=== PATIENT | male | born 1980 | race Caucasian/White ===

== ENCOUNTER 2021-10-30 15:13 | Emergency (ER) | payer OTHER, SELFPAY ==
--- NOTE | ~2021-10-30 | XR_ITS ---
XR shoulder LT min 2V DATE: 10/30/2021 16:06 INDICATION: Left shoulder pain, left neck pain, chronic. No injury. TECHNIQUE: 4 views of left shoulder COMPARISON: None FINDINGS: No fracture or dislocation, periosteal reaction or bone destruction or abnormal soft tissue calcification. Normal alignment at the acromioclavicular and glenohumeral joints. IMPRESSION: Negative Reviewed, dictated and finalized at location A. IMPRESSION: Negative
[2021-10-30 15:45] VITALS: BP 138/81; PULSE 89; RESP 16; TEMP 36.7; O2SAT 99
--- NOTE | 2021-10-30 15:59 | ED.UPPEXIN ---
HPI - Extremity Injury (Upper) General Chief Complaint: Extremity Injury, Upper Stated Complaint: L shoulder pain Time Seen by Provider: 10/30/21 15:42 History of Present Illness HPI narrative: 41-year-old male presents to the emergency room complaints of a atraumatic left shoulder pain. Patient states that he has been having pain for over a month, has recently gotten worse. 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 Patient states that he has gone to a chiropractor on multiple occasions in urgent care for this issue in the. Chiropractor states that he has muscle strain. Patient has been taking Flexeril with little relief. Patient reports decreased muscle strength and occasional paresthesias in his left arm. Review of Systems Review of Systems: CONSTITUTIONAL: Denies fever, chills, or sweats. EYES: Denies visual changes, redness, or discharge. ENT: Denies rhinorrhea, congestion, sore throat, or otalgia. CARDIOVASCULAR: Denies chest pain, palpitations, or edema. RESPIRATORY: Denies cough or dyspnea. GASTROINTESTINAL: Denies abdominal pain, nausea, vomiting, or diarrhea. GENITOURINARY: Denies dysuria or hematuria. SKIN: Denies rash or itching. MUSCULOSKELETAL: Reports left shoulder pain NEUROLOGIC: Denies headache, numbness, dizziness, or weakness. PSYCHIATRIC: Denies anxiety or depression. Exam Narrative: GENERAL: Well-appearing, well-nourished, and in no acute distress. HEAD: Normocephalic, atraumatic. EYES: PERRLA and EOMI. CHEST: Clear to auscultation. No respiratory distress. No wheezes rales or rhonchi HEART: Regular rate and rhythm. No murmur heard. Normal peripheral pulses. ABDOMEN: Soft, nontender, nondistended, normal active bowel sounds. EXTREMITIES: Left shoulder: Tenderness to the left supraspinatus muscle. Full range of motion no crepitus. No bony abnormality, no soft tissue swelling, no ecchymosis. Neurovascular is intact distally SKIN: Warm, dry, no rash. NEURO: No focal deficits. Alert and oriented x3. PSYCH: Normal mood and affect. Course Vital Signs Vital signs: Vital Signs Temperature 36.7 C 10/30/21 15:45 Pulse Rate 89 10/30/21 15:45 Respiratory Rate 16 10/30/21 15:45 Blood Pressure 138/81 10/30/21 15:45 Pulse Oximetry 99 10/30/21 15:45 Temperature 36.7 C 10/30/21 15:45 Pulse Rate 89 10/30/21 15:45 Respiratory Rate 16 10/30/21 15:45 Blood Pressure 138/81 10/30/21 15:45 Pulse Oximetry 99 10/30/21 15:45 MDM - Extremity Injury (Upper) MDM Narrative Medical decision making narrative: 41-year-old male presents to the emergency room for evaluation of his left shoulder pain that he has had for over a month. Patient states that he has pain to his supraspinatus muscle is worse with arm is over his head. Patient also states that he has bulging disks in his neck and is concerned that that might be the cause of the numbness and tingling in his left arm. X-rays of the shoulder show no acute bony abnormality. Exam and history are more consistent with shoulder impingement. Attempted to explain to patient that treatment for this is usually cortisone injection into the joint and sometimes physical therapy. Patient was very angry that this was likely be able to be fixed right away. Will refer patient to orthopedic Imaging Data Radiologist's impression: Impressions Shoulder X-Ray 10/30/21 16:11 IMPRESSION: Negative Discharge Plan Discharge Clinical Impression: Acute pain of left shoulder Patient Disposition: Home, Self-Care Condition: Stable Instructions: Antibiotic Form Prescriptions: New prednisone 20 mg tablet 40 mg PO DAILY Qty: 10 RF: 0 methocarbamol 750 mg tablet 750 mg PO TID Qty: 20 RF: 0 Follow-up/Referrals: Timothy Tidwell MD [Physician] - PHYSICIAN NOT ON STAFF,NONSTAFF [Primary Care Provider] - Time of Disposition: 16:24
[2021-10-30 16:47] VITALS: BP 134/78; PULSE 78; RESP 16; O2SAT 98
--- NOTE | 2021-10-30 19:19 | PC.NURSE ---
PT CALLS AT 1900 TO COMPLAIN THAT PRESCRIPTIONS WERE NOT SENT TO PHARMACY OF HIS CHOICE. NO PHARMACY LISTED IN CHART. PT UPSET THAT WENT TO PHARMACY OF CHOICE TO [facility]. PT UNABLE TO TELL THIS RN HIS PHARMACY OF CHOICE OTHER THAT IT'S [facility] [place] . WHEN ASKED TO BE MORE SPECIFIC PT CURSED AT THIS NURSE. UPON LOOKING IN PT CHART IF WAS DISCOVERED THAT PRESCRIPTIONS WERE A PAPER COPY AND NOT ELECTRONICALLY SENT. PT COULD NOT FIND PRESCRIPTIONS IN D/C PACKET. RN OFFERED TO CALL IN PRESCRIPTIONS IF PT COULD GIVE CORRECT PHARMACY. PT AGAIN KEPT SAYING IT'S [facility] . THIS RN STATED THAT THERE ARE MULTIPLE [facility] THAT FIT THIS DESCRIPTION. AFTER LENGTHY DISCUSSION IT WAS DECIDED THAT RN WILL CALL PRESCRIPTIONS TO [facility] IN [place].
== END 2021-10-30 16:49 | disposition home or self-care (01) ==
LOC: ANHED 16:42
PROVIDERS: Emergency Provider Nurse Practitioner Family; PCP Family Medicine
DX: M25.512 Pain in left shoulder (principal)
CPT/HCPCS: 73030; 96372; 99283; J1100

== ENCOUNTER 2022-12-17 14:57 | Observation (INO) | payer OTHER, SELFPAY ==
[2022-12-17] VITALS (9 sets, daily range): BP systolic 117–166; BP diastolic 63–147; PULSE 79–88; RESP 16–24; TEMP 36.7–36.8; O2SAT 96–99; BMI 26.6; BMI 26.9
--- NOTE | ~2022-12-17 | US_ITS ---
EXAMINATION: US renal BI DATE: 12/18/2022 09:32 INDICATION: Acute renal insufficiency TECHNIQUE: Multiple ultrasound grayscale images of the kidneys were obtained. COMPARISON: None. FINDINGS: The right kidney measures 9.3 x 3.9 x 5.0 cm. The left kidney measures 11.4 x 5.5 x 5.1 cm. The kidne ys demonstrate normal echogenicity. There is no hydronephrosis in either kidney. No stones identifie d. The bladder is incompletely distended but appears unremarkable. IMPRESSION: 1. Normal kidneys without hydronephrosis. Reviewed, dictated and finalized at location A.
[2022-12-17] MEDS: LORazepam INJ (*CRX) 2 MG/ML VIAL 0.5 MG IV PUSH (15:21)
[2022-12-17] MEDS: SODIUM CHLORIDE 0.9% IV 1,000 ML 999 ML IV CONT (15:22)
[2022-12-17 15:32] LABS: Basophils Absolute Auto 0.1 K/mm3 (0.0-0.1); Basophils Percent Auto 0.5 % (0.2-1.2); Hematocrit 49.2 % (42.0-52.0); Hemoglobin 17.6 g/dL (14.0-18.0); Immature Granulocyte Absolute 0.05 K/mm3 (0.00-0.031); Immature Granulocyte Percent A 0.5 % (0-0.5); Lymphocytes Absolute Auto 1.15 K/mm3 (0.9-3.2); Lymphocytes Percent Auto 10.9 % (18.3-44.2); Mean Corpuscular HGB Conc 35.8 g/dl (32-36); Mean Corpuscular Hemoglobin 32.9 pg (26-34); Monocytes Percent Auto 9.6 % (2.6-8.5); Neutrophils Absolute Auto 8.3 K/mm3 (1.3-6.7); Neutrophils Percent Auto 78.5 % (45.5-73.1); Platelet Count Result 315 k/mm3 (150-375); Red Blood Count 5.35 M/mm3 (4.6-6.20); White Blood Count 10.6 K/mm3 (4.5-10.0)
[2022-12-17 15:49] LABS: Alanine Aminotransferase 27 U/L (6-50); Albumin Level 5.2 g/dL (3.5-5.1); Alkaline Phosphatase 71 U/L (38-126); Anion Gap 16 mmol/L (8-16); Aspartate Amino Transferase 31 U/L (17-59); Bilirubin,Total 1.2 mg/dL (0.2-1.3); Blood Urea Nitrogen 18 mg/dL (9-20); Calcium 9.8 mg/dL (8.4-10.2); Carbon Dioxide 16 mmol/L (22-30); Chloride 106 mmol/L (98-107); Creatine Kinase 226 U/L (55-170); Estimated CRCL calculation 34 ml/min; Estimated Glomerular Filt Rate 29; Glucose 118 mg/dL (65-110); Potassium 4.1 mmol/L (3.4-5.0); Sodium 138 mmol/L (137-145)
--- NOTE | 2022-12-17 17:04 | ED.GENADULT ---
HPI - General Adult General Chief complaint: Unspecified Stated complaint: spasms History of Present Illness HPI narrative: Patient is a 42-year-old male who presents ER with muscle spasms. 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 He has been trying to drink water. He started feeling very cramp. He has had this in the past when he is dehydrated. He is also feeling anxious and breathing quite fast and spasming in his fingers. He also has spasms in his legs at this time. No fevers chills or sweats. No additional concerns. Related Data Allergies Allergy/AdvReac Type Severity Reaction Status Date / Time No Known Allergies Allergy Verified 10/30/21 16:46 Review of Systems Review of Systems: All systems reviewed & are unremarkable except as noted in HPI and below Constitutional: Constitutional: Denies chills, Denies fatigue and Denies fever(s) Cardiovascular: Cardiovascular: Denies chest pain and Denies radiating jaw, neck or arm pain Respiratory: Respiratory: Denies cough and Reports dyspnea Musculoskeletal: Musculoskeletal: Denies arthralgias, Reports muscle cramps and Denies numbness PMFSH Past Medical History Medical History (Updated 12/17/22 @ 18:31 by Romie Tao MD) Healthy adult male Surgical History Surgical History (Updated 12/17/22 @ 18:31 by Romie Tao MD) No pertinent past surgical history Exam Narrative: GENERAL: Anxious appearing, well-nourished, shivering. HEAD: Normocephalic, atraumatic. EYES: PERRL and EOMI. ENT: Mucous membranes moist. CHEST: Clear to auscultation. Increased respiratory rate. HEART: Regular rate and rhythm. Normal peripheral pulses. ABDOMEN: Soft, nontender, nondistended. EXTREMITIES: Normal range of motion. No edema. Thigh cramps. SKIN: Warm, dry, no rash. NEURO: Alert and oriented x3. PSYCH: Normal mood and affect. Course Course Emergency Course: Discussed potential admission several times with the patient. He originally talked to his which he did. He then reports that she was supposed to talk to me about the specifics but this message was not relayed. Asked patient whether he would be staying in the hospital or not because I need him to make a decision. He will. Hospitalist contacted. Patient home be admitted for observation and will receive continuous IV fluid. Vital Signs Vital signs: Vital Signs Temperature 98.1 F 12/17/22 15:04 Pulse Rate 82 12/17/22 15:04 Respiratory Rate 22 H 12/17/22 15:04 Blood Pressure 166/147 H 12/17/22 15:04 Pulse Oximetry 99 12/17/22 15:04 Oxygen Delivery Room Air 12/17/22 15:04 Temperature 98.1 F 12/17/22 15:13 Pulse Rate 88 12/17/22 17:51 Respiratory Rate 18 12/17/22 17:51 Blood Pressure 125/63 12/17/22 17:51 Pulse Oximetry 99 12/17/22 17:51 Oxygen Delivery Room Air 12/17/22 17:07 Medical Decision Making Vital Signs Vital Signs: Vital Signs Temperature 98.1 F 12/17/22 15:04 Pulse Rate 82 12/17/22 15:04 Respiratory Rate 22 H 12/17/22 15:04 Blood Pressure 166/147 H 12/17/22 15:04 Pulse Oximetry 99 12/17/22 15:04 Oxygen Delivery Room Air 12/17/22 15:04 Temperature 98.1 F 12/17/22 15:13 Pulse Rate 88 12/17/22 17:51 Respiratory Rate 18 12/17/22 17:51 Blood Pressure 125/63 12/17/22 17:51 Pulse Oximetry 99 12/17/22 17:51 Oxygen Delivery Room Air 12/17/22 17:07 Lab Data 12/17/22 15:23 12/17/22 15:23 Labs: Lab Results 12/17/22 Range/Units 15:23 WBC 10.6 H (4.5-10.0) K/mm3 RBC 5.35 (4.6-6.20) M/mm3 Hgb 17.6 (14.0-18.0) g/dL Hct 49.2 (42.0-52.0) % MCV 92.0 (80-100) fl MCH 32.9 (26-34) pg MCHC 35.8 (32-36) g/dl RDW 12.0 (11.5-14.5) % Plt Count 315 (150-375) k/mm3 MPV 10.0 (7.4-10.4) fl Immature Gran % (Auto) 0.5 (0-0.5) % Neut % (Auto) 78.5 H (45.5-73.1) % Lymph % (Auto) 10.9 L (18.3-44.2) % Bryan % (Auto) 9.6 H (2.6-
[2022-12-17] MEDS: LACTATED RINGERS 1,000 ML 150 ML IV CONT (17:51)
--- NOTE | 2022-12-17 19:40 | ADMGEN ---
This patient, Jhonny Martins, was admitted to [facility] Surg Room 325-02. Patient/family oriented to hospital policies and general routines including ID bracelet, bed and alarms, visiting hours, pain management, procedures, bathroom and other care routines, personal items, smoking policy, room service/diet, and visiting hours. Information on how to activate the Rapid Response Team has been discussed. Patient/Family are encouraged to report perceived risks to care and to ask questions if they do not understand what they are told or what they should do.
--- NOTE | 2022-12-17 20:57 | ED.GENADULT ---
HPI - General Adult General Chief complaint: Unspecified Stated complaint: spasms Related Data Allergies Allergy/AdvReac Type Severity Reaction Status Date / Time pemoline [From Cylert] AdvReac Vomiting Verified 12/17/22 20:09 [facility] Past Medical History Medical History (Updated 12/17/22 @ 18:31 by Romie Tao MD) Healthy adult male Surgical History Surgical History (Updated 12/17/22 @ 18:31 by Romie Tao MD) No pertinent past surgical history Social History Social History Smoking packs per day: 1 Smoking cigarettes per day: 20.0 Smoking status: Current every day smoker Tobacco type: cigarettes Alcohol intake: current Drinks per week: 2 Substance use type: marijuana Last use: 12/16/2022 Lack of Transportation: No Lack of Food: Never True Current Housing: I Have Housing Concerned About Future Housing: No Difficulty Paying Gas/Electric Bills: No Difficulty Paying for Meds: No Currently Unemployed: No Education: Associate Degree Difficulty w/ Childcare or Family Care: No Spiritual care concerns: No Course Vital Signs Vital signs: Vital Signs Temperature 98.1 F 12/17/22 15:04 Pulse Rate 82 12/17/22 15:04 Respiratory Rate 22 H 12/17/22 15:04 Blood Pressure 166/147 H 12/17/22 15:04 Pulse Oximetry 99 12/17/22 15:04 Oxygen Delivery Room Air 12/17/22 15:04 Temperature 98.2 F 12/17/22 19:30 Pulse Rate 83 12/17/22 19:30 Respiratory Rate 16 12/17/22 19:30 Blood Pressure 117/72 12/17/22 19:30 Pulse Oximetry 96 12/17/22 19:30 Oxygen Delivery Room Air 12/17/22 17:07 Medical Decision Making Vital Signs Vital Signs: Vital Signs Temperature 98.1 F 12/17/22 15:04 Pulse Rate 82 12/17/22 15:04 Respiratory Rate 22 H 12/17/22 15:04 Blood Pressure 166/147 H 12/17/22 15:04 Pulse Oximetry 99 12/17/22 15:04 Oxygen Delivery Room Air 12/17/22 15:04 Temperature 98.2 F 12/17/22 19:30 Pulse Rate 83 12/17/22 19:30 Respiratory Rate 16 12/17/22 19:30 Blood Pressure 117/72 12/17/22 19:30 Pulse Oximetry 96 12/17/22 19:30 Oxygen Delivery Room Air 12/17/22 17:07 Lab Data 12/17/22 15:23 12/17/22 15:23 Labs: Lab Results 12/17/22 Range/Units 15:23 WBC 10.6 H (4.5-10.0) K/mm3 RBC 5.35 (4.6-6.20) M/mm3 Hgb 17.6 (14.0-18.0) g/dL Hct 49.2 (42.0-52.0) % MCV 92.0 (80-100) fl MCH 32.9 (26-34) pg MCHC 35.8 (32-36) g/dl RDW 12.0 (11.5-14.5) % Plt Count 315 (150-375) k/mm3 MPV 10.0 (7.4-10.4) fl Immature Gran % (Auto) 0.5 (0-0.5) % Neut % (Auto) 78.5 H (45.5-73.1) % Lymph % (Auto) 10.9 L (18.3-44.2) % Colbert % (Auto) 9.6 H (2.6-8.5) % Eos % (Auto) 0.0 (0-4.4) % Baso % (Auto) 0.5 (0.2-1.2) % Lymph # (Auto) 1.15 (0.9-3.2) K/mm3 Colbert # (Auto) 1.0 H (0.1-0.6) K/mm3 Eos # (Auto) 0.0 (0-0.3) K/mm3 Baso # (Auto) 0.1 (0.0-0.1) K/mm3 Abs Immat Gran (auto) 0.05 H (0.00-0.031) K/mm3 Absolute Neuts (auto) 8.3 H (1.3-6.7) K/mm3 Absolute Nucleated RBC 0.0 (0.0-0.012) K/mm3 Nucleated RBC % 0.0 (0.0-0.2) % Sodium 138 (137-145) mmol/L Potassium 4.1 (3.4-5.0) mmol/L Chloride 106 (98-107) mmol/L Carbon Dioxide 16 L (22-30) mmol/L Anion Gap 16 (8-16) mmol/L BUN 18 (9-20) mg/dL Creatinine 2.50 H (0.7-1.3) mg/dL Estim Creat Clear Calc 34 ml/min Estimated GFR 29 L (59 - ) Glucose 118 H (65-110) mg/dL Calcium 9.8 (8.4-10.2) mg/dL Total Bilirubin 1.2 (0.2-1.3) mg/dL AST 31 (17-59) U/L ALT 27 (6-50) U/L Alkaline Phosphatase 71 (38-126) U/L Total Creatine Kinase 226 H (55-170) U/L Total Protein 8.0 (6.3-8.2) g/dL Albumin 5.2 H (3.5-5.1) g/dL Discharge Plan Discharge Clinical Impression: HENNY (acute kidney injury) Patient Disposition: Still a Patient Condition: Stable
--- NOTE | 2022-12-17 21:10 | PM.IMHP ---
H&P: HPI History of Present Illness Date/Time: 12/17/22 19:30 Chief Complaint: Muscle cramps. Narrative: This is a 42-year-old male smoker who presented to the emergency department via EMS from home for evaluation of severe muscle cramps. 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 He tries to stay hydrated as well as he can however approximately 2 hours into his work today he developed drenching sweats followed by chills, shivers, and diffuse muscle cramps and spasms. He took a break and drink water and Gatorade which did not seem to help. He then drove himself home and he had to stop [address] to vomit. Once he got home he was very weak and could hardly make it into the house. He called 911 and was brought to the emergency department. His vital signs have been stable since arrival. Labs were significant for a WBC count of 10.6, sodium 138, potassium 4.1, chloride 106, carbon dioxide 16, anion gap 16, BUN 18, creatinine 2.50, AST 31, ALT 27, alkaline phosphatase 71, total CK 226. He has been started on IV fluids and is being admitted in this setting for acute kidney injury, presumably due to heat exposure. At the time my evaluation he still has some mild muscle cramping but is feeling better. At times his urine is dark and malodorous but he believes that is likely due to the fact that he is not always well hydrated while working. He has not had any overt dysuria. He denies difficulties emptying his bladder. He has not had any further episodes of vomiting. He is not currently taking any medications. No syncope or near syncope. No chest pain shortness a breath. Review of Systems Review of Systems: Twelve systems were reviewed and are negative except for as per HPI [facility] Past Medical History Medical History (Updated 12/18/22 @ 00:17 by Brooke Galarza PA-C) Anxiety Attention deficit hyperactivity disorder Bipolar disorder Degenerative disc disease Depression Tobacco dependence Surgical History Surgical History (Updated 12/18/22 @ 00:15 by Brooke Galarza PA-C) History of arthroscopy of right shoulder History of bilateral inguinal hernia repair Family History Family History (Updated 12/18/22 @ 00:15 by Brooke Galarza PA-C) Other Family history non-contributory Social History Social History (Updated 12/18/22 @ 00:16 by Brooke Galarza PA-C) Social History: Surrogate medical decision maker: Jena Anderson (spouse). Code status: Full code. Smoking packs per day: 1 Smoking cigarettes per day: 20.0 Smoking status: Current every day smoker Tobacco type: cigarettes Alcohol intake: current Drinks per week: 2 Substance use type: marijuana Last use: 12/16/2022 Lack of Transportation: No Lack of Food: Never True Current Housing: I Have Housing Concerned About Future Housing: No Difficulty Paying Gas/Electric Bills: No Difficulty Paying for Meds: No Currently Unemployed: No Education: Associate Degree Difficulty w/ Childcare or Family Care: No Additional living arrangements comments: Lives with spouse in [place]. 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 Spiritual care concerns: No Meds Home Medications and Allergies Home Medications Medication Instructions Recorded Confirmed Type glucosamine-chondroitin See Rx Instructions .Route .COMPLEX 12/17/22 12/17/22 History magnesium See Rx Instructions .Route .COMPLEX 12/17/22 12/17/22 History multivitamin with minerals-folic 1 tablet PO DAILY 12/17/22 12/17/22 History acid 0.4 mg tablet omeprazole magnesium 20 mg 20 mg PO DAILY PRN Acid Reflux 12/17/22 12/17/22 History tablet,delayed release (Prilosec OTC) Allergies Allergy/AdvReac Type Severity Reaction Status Date / Time pemoline [From Cylert] AdvReac Vomiting Verified 12/17/22 20:09 Vital Signs Vital Signs - 24 hr 12/17/22 15:04 12/17/22 15:13
[2022-12-17] MEDS: LACTATED RINGERS 1,000 ML 999 ML IV CONT (21:12)
[2022-12-18 00:57] LABS: Anion Gap 5 mmol/L (8-16); Blood Urea Nitrogen 18 mg/dL (9-20); Calcium 8.2 mg/dL (8.4-10.2); Carbon Dioxide 27 mmol/L (22-30); Chloride 105 mmol/L (98-107); Creatine Kinase 428 U/L (55-170); Estimated CRCL calculation 57 ml/min; Estimated Glomerular Filt Rate 52; Glucose 103 mg/dL (65-110); Magnesium 2.2 mg/dL (1.6-2.3); Potassium 3.7 mmol/L (3.4-5.0); Sodium 137 mmol/L (137-145)
[2022-12-18 00:59] LABS: Appearance Urine Clear (Clear); Bilirubin Urine Negative (Negative); Blood Urine Negative (Negative); Color Urine Yellow (Yellow); Glucose Urine UA Negative (Negative); Ketones Urine Trace mg/dL (Negative); Leukocyte Esterase Ur Negative LEU/UL (Negative); Nitrate Urine Negative (Negative); Protein Urine Negative (Negative); Specific Grav Ur 1.023 (1.001-1.035); pH Urine 5.5 (5.0-9.0)
[2022-12-18 01:02] LABS: Add Urine Microscopic? NO
[2022-12-18] MEDS: LACTATED RINGERS 1,000 ML 200 ML IV CONT ×2 (02:10→07:25)
[2022-12-18 06:00] VITALS: BP 105/65; PULSE 71; RESP 16; TEMP 36.5; O2SAT 99
[2022-12-18 06:56] LABS: Anion Gap 1 mmol/L (8-16); Blood Urea Nitrogen 16 mg/dL (9-20); Calcium 7.8 mg/dL (8.4-10.2); Carbon Dioxide 29 mmol/L (22-30); Chloride 105 mmol/L (98-107); Creatine Kinase 435 U/L (55-170); Estimated CRCL calculation 57 ml/min; Estimated Glomerular Filt Rate 52; Glucose 97 mg/dL (65-110); Potassium 3.6 mmol/L (3.4-5.0); Sodium 135 mmol/L (137-145)
--- NOTE | 2022-12-18 11:17 | PC.NURSE ---
1112 Provider informed this nurse the patient told her that he is leaving AMA. Provider informed this nurse that his kidney function is still elevated and she wants to recheck kidney labs in the morning, but he is refusing to stay for continued care and wants to leave now. This nurse obtained AMA form right away and brought AMA form to pt. Pt angry and agitated in room. pt slamming belongings down, using profanities. This nurse told him that I have an AMA form for him to sign. Pt states I am not signing it. This nurse discontinued his IV and pt grabbed belongings and left. This nurse signed AMA paperwork stating the refusal to sign.
--- NOTE | 2022-12-18 11:22 | PM.EVENT ---
Event Note Event Note Event Note: Date/time seen: 12/18/2022 11:10 Jhonny Martins is a 42-year-old male with a history of ADHD, bipolar disorder, anxiety, tobacco dependence who is seen in follow-up for acute kidney injury secondary to heat exposure. I evaluated the patient this morning and he reports that he is feeling improved, cramping in his hands and legs has resolved. Reports he was very upset yesterday as ?the ER doctor refused to talk to my . ? I offered to call the patient's 5 to provide an update, he states this was no longer needed. Discussed need for continued admission due to ongoing HENNY. Patient made aware creatinine still elevated at 1.5 with recommendations for continued IV fluids. Discussed repeating BMP in the morning to re-evaluate. Upon my stating this, patient became very agitated, stating he would not stay until the morning. He then threw his remote, began yelling and cursing. Informed patient of my recommendation that he remain admitted for IV fluids. He stated he would not stay in the hospital and immediately picked up his phone to call for a ride. Informed the patient that he could sign out against medical advice, however there was risk for continued kidney injury and reiterated recommendations for continued hospital admission. Patient stated he would like to sign out against medical advise and I informed RN to bring form. Upon my exiting the room, patient began cursing more. He then departed the facility and refused to sign the AMA form.
== END 2022-12-18 11:15 | disposition left against medical advice (07) ==
LOC: ANHED 17:06 → ANH3MEDSUR 18:52
PROVIDERS: Physician Assistant; Admitting Provider Internal Medicine; Emergency Provider Emergency Medicine; PCP Family Medicine; Visit Provider Physician Assistant
DX: N17.9 Acute kidney failure, unspecified (principal); T67.9XXA Effect of heat and light, unspecified, initial encounter; Z53.29 Procedure and treatment not carried out because of patient's decision for other reasons; E86.0 Dehydration; M62.838 Other muscle spasm; F41.9 Anxiety disorder, unspecified; F90.9 Attention-deficit hyperactivity disorder, unspecified type; F31.9 Bipolar disorder, unspecified; F17.210 Nicotine dependence, cigarettes, uncomplicated; F10.90 Alcohol use, unspecified, uncomplicated; F12.90 Cannabis use, unspecified, uncomplicated; Z79.899 Other long term (current) drug therapy
CPT/HCPCS: 36415; 76775; 80048; 80053; 81003; 82550; 83735; 85025; 96360; 96361; 96374; 99285; G0378; J2060; J7030; J7120